=== PATIENT | male | born 1990 | race Caucasian/White ===

== ENCOUNTER 2016-12-23 22:08 | Emergency (ER) | payer OTHER ==
[~2016-12-23] VITALS: Ht 177.8 cm; Wt 70.5 kg
--- NOTE | 2016-12-23 23:48 | ED.REPORT ---
HPI-General Illness Date of Service Dec 23, 2016 ED Provider: Dr. Odell Rivers Poncho is a 26-year-old male who presents to the ER complaining of a fever, onset yesterday. Via patient's , he came home from hunting in the evening and had a 102 F temperature. His temperature spiked to 104 F later in the evening. He has been taking Tylenol every four hours. Patient c/o associated cough, headache and diarrhea. Pt denies sore throat, earache, vomiting. Patient has not received a flu vaccine and is not allergic to anything. Nursing Notes Stated Complaint: FEVER,DIZZINESS Nursing Notes Reviewed: Yes Allergies: Coded Allergies: No Known Allergies (Verified Allergy, Unknown, 12/24/16) General Time Seen by MD: 23:48 Chief Complaint Fever Hx Obtained From: Patient Arrived By: Walk-in Onset Occurred: 1 day ago Symptom Duration: Since onset Severity: Current: No pain currently Recent Healthcare: No recent doctor visit, No recent hospitalization Past Medical History Past Medical History denies Past Surgical History denies Ambulatory Status Independent Review of Systems Full Review of Systems Constitutional: Reports: Fever Ears / Nose / Throat: Reports: Sore throat, Denies: Earache left, Earache right Respiratory: Reports: Non-productive cough GI: Reports: Diarrhea, Denies: Vomiting Neurologic: Reports: Headache Physical Exam Vital Signs Vital Signs Date Time Temp Pulse Resp B/P Pulse Ox O2 Delivery O2 Flow Rate FiO2 12/24/16 00:50 76 16 98 Room Air 12/23/16 23:59 36.6 79 16 121/69 97 Room Air Initial VS: Reviewed General/Constitutional: Well-developed, Well-nourished Head / Eyes: Atraumatic, Normocephalic, PERRL ENT: Mucous membranes moist, Conjunctiva normal, No scleral icterus Cardiovascular: Regular rate & rhythm, Heart sounds normal, Intact distal pulses Abdomen / GI: Soft, Non-tender, No guarding, No rebound, No distention Back: No CVA tenderness Lymphatic: No lymphadenopathy Extremities: Vascular intact, Neuro intact, No swelling, No tenderness Skin: Warm, Dry, No cyanosis Neurologic: Alert, Oriented, Nonfocal Psychiatric: Mood/affect normal, Behavior normal, Normal thought content Neck: Atraumatic no nuchal rigidity Respiratory / Chest: Atraumatic, Breath sounds NL, Breath sounds = bilat, No respiratory distress, No rales, No rhonchi, No wheezing, No retractions Skin: Atraumatic, No rash very warm skin Interpretation & Diagnostics Lab Results Interpretation Lab Results Interpretation: positive for influenza A, negative for influenza B Re-Eval/Medical Decision Time of Eval: 00:38 Patient Status: Condition unchanged Re-Evaluation/Progress Note: Pt rechecked. Informed pt of diagnosis of influenza A and plan for treatment. Pt understands and agrees with plan. F/U and RTER warnings given. All questions addressed. Counseled Regarding: Diagnosis, Lab results, Need for follow-up, When/why to return to ED Discharge & Departure Primary Impression: Influenza due to influenza A virus Disposition: Home Discharge Condition All VS Reviewed: Yes Condition: Stable Patient Instructions: Influenza (DC) Additional Instructions: You have tested positive for influenza A. Tylenol or Motrin as directed for fever and body aches. Do not drive tonight as you have received sedating medications. Tamiflu twice daily for 5 days. Drink plenty of liquids. Return if any problems or any worsening symptoms. Set up a follow-up with your primary care physician if you are not significantly improved in 3-5 days. Read the influenza aftercare instructions given. Referrals: NOPCP (PCP) [facility] [place] Attestation Portion of this note were transcribed by [place]. I, Dr. Rivers, personally performed the history, physical exam, and medical decision-making: I reviewed and confirmed the accuracy for the information in the transcribed note. Signed by: sandoval Saleh, 12/23/16 0045 copies to: [facility] Odell Rivers DO Dec 23, 2016 23:48 [place] Dec 24, 2016 00:05
[2016-12-23 23:59] VITALS: BP 121/69; PULSE 79; RESP 16; O2SAT 97
[2016-12-24] MEDS ORDERED: Ketorolac 30 mg/mL 2 mL Inj IM ONE (00:05)
[2016-12-24] MEDS ORDERED: HYDROcodone-APAP 5-325 mg Tablet PO ONE (00:05)
[2016-12-24 00:50] VITALS: PULSE 76; RESP 16; O2SAT 98
== END 2016-12-24 01:01 | disposition home or self-care (01) ==
LOC: SED 22:08
DX: J10.89 Influenza due to other identified influenza virus with other manifestations (principal)
CPT/HCPCS: 87804; 87880; 96372; 99284; J1885

== ENCOUNTER 2017-04-15 20:17 | Emergency (ER) | payer OTHER ==
[2017-04-15 20:38] VITALS: BP 145/77; PULSE 78; RESP 16; O2SAT 99
--- NOTE | 2017-04-15 21:30 | ED.REPORT ---
HPI-Dental/Mouth Prob Date of Service April 15, 2017 ED Provider: Dr. Odell Rivers D.O. A healthy 27 year old male presents to the ED with right-sided dental pain worsening over the past 6-8 hours. The patient has been taking Aleve and Tylenol with some relief. He has a dentist appointment tomorrow morning. The patient denies other symptoms currently. Nursing Notes Stated Complaint: MOUTH PAIN Chief Complaint: Dental Nursing Notes Reviewed: Yes Allergies: Coded Allergies: No Known Allergies (Verified Allergy, Unknown, 04/15/17) General Time Seen by MD: 21:29 Chief Complaint Tooth pain (Right-sided) Hx Obtained From: Patient Arrived By: Walk-in Onset Occurred: 5 - 8 hours ago (Worsening over 6-8 hours) Symptom Duration: Since onset Quality: Painful (Right-sided dental pain) Severity: Current: Moderate Severity: Maximum: Moderate Relieved by: OTC medications Recent Healthcare: No recent doctor visit Past Medical History Past Medical History None reported Past Surgical History denies Smoking History Unknown if Ever Smoker Social History Other Social History: Good social support Ambulatory Status Independent Review of Systems Constitutional: Denies: Fever Ears / Nose / Throat: Reports: Toothache (Right-sided) Respiratory: Denies: Non-productive cough, Shortness of breath GI: Denies: Diarrhea, Vomiting Complete sys rev & neg: except as marked. Physical Exam Initial Vital Signs Vital Signs (First) Date Time Temp Pulse Resp B/P Pulse Ox O2 Delivery O2 Flow Rate FiO2 04/15/17 20:38 37.3 78 16 145/77 99 Room Air Head / Eyes: Atraumatic, Normocephalic Respiratory: No respiratory distress Skin: Warm, Dry, No cyanosis Neurologic: Alert, Oriented, Nonfocal Psychiatric: Mood/affect normal, Behavior normal, Normal thought content ENT: Airway patent, Mucous membranes moist, Pharynx NL, No peritonsillar abscess, No pooling of secretions, No trismus Dental / Gums: Positive: Dental caries present Buccal cellulitis Neck: Supple, Full range of motion General/Constitutional: Awake, Alert Re-Eval/Medical Decision Re-Evaluation/Progress : Time of Eval: 21:50 Patient Status: Condition improved Re-Evaluation/Progress Note: Discussed with patient physical exam findings, diagnosis, and plan for discharge. Follow-up and return to the ER instructions given. Patient agrees with plan for care and all questions were addressed. Counseled Regarding: Diagnosis, Need for follow-up, When/why to return to ED Discharge & Departure Primary Impression: Cellulitis of buccal space of mouth Additional Impression: Dental caries Disposition: Home Discharge Condition All VS Reviewed: Yes Condition: Improved Patient Instructions: Dental Caries (ED) Additional Instructions: Thank you for entrusting us with your care. Please take Augmentin twice daily for seven days, as prescribed. 1-2 Percocet every six hours as needed for pain. Do not drink alcohol, drive, or consume acetaminophen while taking Percocet. Keep your dentist appointment tomorrow. Return to the ER with any new or worsening symptoms. Referrals: NOPCP (PCP) [facility] Scribe Attestation Portions of this note were transcribed by Noa Smith. I, Dr. Rivers, personally performed the history, physical exam, and medical decision-making; I reviewed and confirmed the accuracy of the information in the transcribed note. Signed by: Sami Horne, 04/15/2017, 22:30 copies to: [facility] Odell Rivers DO April 15, 2017 21:30 NOA SMITH April 15, 2017 21:54
[2017-04-15] MEDS ORDERED: _oxyCODONE/APAP 5-325 mg Tablet PO PRN (22:00)
[2017-04-15] MEDS ORDERED: Amoxicillin-Clav 875-125 mg Tablet PO ONE (22:00)
== END 2017-04-15 22:17 | disposition home or self-care (01) ==
LOC: SED 20:17
DX: K12.2 Cellulitis and abscess of mouth (principal); K02.9 Dental caries, unspecified

== ENCOUNTER 2017-04-16 19:19 | Emergency (ER) | payer OTHER ==
[~2017-04-16] VITALS: Ht 175.3 cm; Wt 70.5 kg
[2017-04-16 19:36] VITALS: BP 150/88; PULSE 92; RESP 16; O2SAT 98
[2017-04-16] MEDS ORDERED: AMPICILLIN SULBACTAM IM ONE (19:40)
[2017-04-16] MEDS ORDERED: Lidocaine 1% 50 mL Inj NERVEBLOCK ONE (19:40)
--- NOTE | 2017-04-16 20:41 | ED.REPORT ---
HPI-Dental/Mouth Prob Date of Service April 16, 2017 ED Provider: Odell Rivers DO 27 y/o healthy male with no pertinent hx presents to the ED complaining of right sided tooth pain, onset yesterday. The pt was seen at the ED and was discharged with Amoxicillin. Today, he reports facial swelling and persistent pain. Nursing Notes Stated Complaint: ABSCESS IN MOUTH Chief Complaint: Dental Nursing Notes Reviewed: Yes Allergies: Coded Allergies: No Known Allergies (Verified Allergy, Unknown, 04/16/17) General Time Seen by MD: 19:39 Chief Complaint Tooth pain Hx Obtained From: Patient Arrived By: Walk-in Onset Occurred: Yesterday Symptom Duration: Since onset Recent Healthcare: Recent doctor visit Similar Sx Previous: No Past Medical History Past Medical History None reported Past Surgical History denies Smoking History Unknown if Ever Smoker Social History Other Social History: Good social support Ambulatory Status Independent Review of Systems Reports: Facial swelling. Ears / Nose / Throat: Reports: Toothache Complete sys rev & neg: except as marked. Physical Exam Initial Vital Signs Vital Signs (First) Date Time Temp Pulse Resp B/P Pulse Ox O2 Delivery O2 Flow Rate FiO2 04/16/17 19:36 37.3 92 16 150/88 98 Room Air Initial VS: Reviewed Respiratory: Breath sounds normal, Clear to auscultation, No respiratory distress Cardiovascular: Regular rate & rhythm, Heart sounds normal, Intact distal pulses Abdomen / GI: Soft, Non-tender Extremities: Vascular intact, Neuro intact, No swelling, No tenderness Skin: Warm, Dry, No cyanosis Neurologic: Alert, Oriented, Nonfocal ENT: Atraumatic, Mucous membranes moist SWELLING OVER MANDIBLE PERIAPICAL ABSCESS DRAINED. Neck: Atraumatic, Full range of motion, No swelling, No JVD Procedures Incision & Drainage Abscess Procedure Performed by: ED physician Consent / Setup / Site Prep: Informed consent provided, Consent from patient Location of Abscess: Right mandibular Skin Preparation Agent: Normal saline Local Anesthesia: Lidocaine 1% (2 mL) Incised Abscess with Scalpel: #11 Pus Drained: Medium Irrigation: Yes, Copious Post-Procedure / Complications: No complications, Condition improved, Patient stable Re-Eval/Medical Decision Med Decision/Clinical Course Today's dental infection has declared itself as a periapical abscess. This was adequately drained. Ivan yellow pus drained. His facial swelling was gone. No stridor, trismus or drooling. No Franck angina. He was given IM ampicillin. He is on Augmentin and Percocet. I think he needs to see a dentist tomorrow and have this tooth worked on. Routine opiate dental warnings are given. Re-Evaluation/Progress : Time of Eval: 20:00 Re-Evaluation/Progress Note: Rechecked pt. Discussed lab, imaging results and diagnosis. Informed the pt of the plan to discharge. Pt understands and agrees with plan. F/U instructions and RTER warning given. All questions addressed. Counseled Regarding: Diagnosis, Lab results, Need for follow-up, When/why to return to ED Discharge & Departure Primary Impression: Dental abscess Disposition: Home Patient Instructions: Dental Abscess (ED) Additional Instructions: Continue with the Augmentin. The abscess should drain well now. Use the Percocet as prescribed. Take 1-2 every 6 hours as needed for severe pain. Do not drive or drink alcohol or consume acetaminophen while taking the Percocet. See a dentist as soon as possible. Congratulations on the of your daughter. Return if any problems or any new or worsening symptoms. Referrals: NOPCP (PCP) [facility] Scribe Attestation Portions of this note were transcribed by Harika Frederick. I, , personally performed the history, physical exam and medical decision-making;I reviewed and confirmed the accuracy of the information in the transcribed note. Signed by Sami Hou. 04/16/17 [id number] copies to: [facility] Odell Rivers DO April 16, 2017 20:41 Harika Frederick April 16, 2017 23:12
[2017-04-16] MEDS ORDERED: _oxyCODONE/APAP 5-325 mg Tablet PO PRN (20:45)
[2017-04-16 21:59] VITALS: BP 127/80; PULSE 71; RESP 16; O2SAT 100
== END 2017-04-16 21:50 | disposition home or self-care (01) ==
LOC: SED 19:19
DX: K04.7 Periapical abscess without sinus (principal)
CPT/HCPCS: 41800; 96372; 99283; J0295